=== PATIENT | female | born 1980 | race Hispanic/Latino ===

== ENCOUNTER 2017-01-14 17:54 | Emergency (ER) | payer SELFPAY ==
--- NOTE | 2017-01-14 18:24 | RAD ---
PORTABLE CHEST ONE VIEW: 01/14/17 at 6:06 p.m. HISTORY: Left arm pain, numbness, chest pain. FINDINGS: The heart size is normal. The lungs are expanded without focal areas of consolidation, pneumothorax or pleural effusions. IMPRESSION: No radiographic evidence of acute cardiopulmonary process. POS: [facility]
[2017-01-14 18:26] LABS: #Basophils 0.1 thou/uL (0.0-0.2); #Eosinphils 0.2 thou/uL (0.0-0.7); #Lymphocytes 3.4 thou/uL (1.20-3.40); #Monocytes 0.9 thou/uL (0.11-0.59); #Neutrophils 11.5 thou/uL (1.40-6.50); %Basophils 0.5 % (0.0-1.0); %Eosinophils 1.5 % (0.0-10.0); %Monocytes 5.3 % (0.0-10.0); Hematocrit 46.7 % (36.0-47.0); Mean Platelet Volume 7.5 fL (7.4-10.4); Red Blood Cell (RBC) Count 5.22 mill/uL (4.20-5.40); White Blood Cell (WBC) Count 16.1 thou/uL (4.8-10.8)
[2017-01-14 18:53] LABS: ALT (SGPT) 34 U/L (8-55); AST (SGOT) 21 U/L (5-34); Alkaline Phosphatase 118 U/L (40-150); Anion Gap 13 mmol/L (10-20); BUN (Urea Nitrogen) 15 mg/dL (7.0-18.7); Bilirubin, Total 0.3 mg/dL (0.2-1.2); CK (CPK) 77 U/L (29-168); Calc. Creatinine Clearance 0 mL/min (70-130); Calcium 9.7 mg/dL (7.8-10.44); Carbon Dioxide 24 mmol/L (22-29); Chloride 104 mmol/L (98-107); Estimated GFR-MDRD 78; Globulin 3.6 g/dL (2.4-3.5); Protein, Total 7.6 g/dL (6.0-8.3)
[2017-01-14 18:57] LABS: Troponin I Less than 0.010 ng/mL (< 0.028)
[2017-01-14] MEDS ORDERED: methylPREDNISolone Sod Succ/PF 125 MG/2 ML VIAL ONE (19:08)
[2017-01-14] MEDS ORDERED: Water For Inject, Bacteriostat 30 ML ONE (19:09)
--- NOTE | 2017-01-14 19:49 | RAD ---
CERVICAL SPINE THREE VIEWS: 01/14/17 HISTORY: Left arm pain and numbness, neck pain. FINDINGS/IMPRESSION: There is loss of the cervical lordosis with straightening of the cervical spine. Degenerative change s are present. No fracture or subluxation is identified. POS: [facility]
== END 2017-01-14 19:56 | disposition home or self-care (01) ==
LOC: ERS 17:54
DX: M54.12 Radiculopathy, cervical region (principal); F17.210 Nicotine dependence, cigarettes, uncomplicated
CPT/HCPCS: 36415; 71010; 72040; 80053; 82550; 82553; 83880; 84484; 85025; 93005; 96372; J2930

== ENCOUNTER 2018-02-12 19:54 | Emergency (ER) | payer SELFPAY ==
[~2018-02-12 19:54] MED LIST: ISOVUE-370 76%-LOCM 1 ML ONE
[2018-02-12] MEDS ORDERED: Metoclopramide HCl 10 MG/2 ML VIAL ONE (21:18)
[2018-02-12] MEDS ORDERED: Dicyclomine 20 MG TAB ONE (21:18)
[2018-02-12 21:54] LABS: #Eosinphils 0.2 thou/uL (0.0-0.7); #Lymphocytes 3.4 thou/uL (1.20-3.40); #Monocytes 0.7 thou/uL (0.11-0.59); #Neutrophils 8.5 thou/uL (1.40-6.50); %Basophils 0.2 % (0.0-1.0); %Eosinophils 1.6 % (0.0-10.0); %Lymphocytes 26.5 % (21.0-51.0); %Monocytes 5.5 % (0.0-10.0); %Neutrophils 66.2 % (42.0-75.0); Hemoglobin 14.2 g/dL (12.0-16.0); Mean Corpuscular Hemoglobin 29.3 pg (27.0-31.0); Platelet Count 228 thou/uL (130-400); RBC Distribution Width 11.9 % (11.5-14.5); Red Blood Cell (RBC) Count 4.86 mill/uL (4.20-5.40); White Blood Cell (WBC) Count 12.8 thou/uL (4.8-10.8)
[2018-02-12 21:58] LABS: BHCG - Serum Negative (NEGATIVE); Pregs Control Background? CLEAR/WHITE (CLR/WHITE); Pregs Control Bar Appear? YES (CONTROL BAR)
[2018-02-12 22:06] LABS: ALT (SGPT) 40 U/L (8-55); AST (SGOT) 21 U/L (5-34); Albumin 4.1 g/dL (3.5-5.0); Alkaline Phosphatase 118 U/L (40-150); Anion Gap 13 mmol/L (10-20); BUN (Urea Nitrogen) 11 mg/dL (7.0-18.7); Bilirubin, Total 0.3 mg/dL (0.2-1.2); Calc. Creatinine Clearance 0 mL/min (70-130); Calcium 9.5 mg/dL (7.8-10.44); Carbon Dioxide 23 mmol/L (22-29); Chloride 107 mmol/L (98-107); Estimated GFR-MDRD 84; Globulin 3.1 g/dL (2.4-3.5); Glucose 101 mg/dL (70-105); Potassium 3.8 mmol/L (3.5-5.1); Protein, Total 7.2 g/dL (6.0-8.3); Sodium 139 mmol/L (136-145)
[2018-02-12 22:39] LABS: Bilirubin Negative (Negative); Blood, Urine Negative (Negative); Clarity CLEAR (Clear); Glucose, Urine (Dipstick) Negative (Negative); Leukocyte Negative (Negative); Nitrite Negative (Negative); Protein, Urine (Dipstick) Negative (Neg-Trace); Specific Gravity, Urine 1.007 (1.002-1.036); Urobilinogen 0.2 mg/dL (0.2-1.0); pH, Urine 6.5 (5.0-9.0)
--- NOTE | 2018-02-13 08:54 | CT ---
CT ABDOMEN AND PELVIS WITH CONTRAST: Date: 02/12/18 HISTORY: Central abdominal pain. COMPARISON: CT abdomen and pelvis from 2009. FINDINGS: There is a small pleural 3.0 mm nodule in the right middle lobe. No pericardial effusion. Diffuse hep atic steatosis. Gallbladder is unremarkable. No dilated loops of large or small bowel. No free intraperitoneal gas or fluid. The appendix is visualized and is normal. Right adnexal hypodensity is present, suggesting a cyst. No hydronephrosis. No splenic, pancreatic, or adrenal abnormality. No acute osseous abnormality. IMPRESSION: No acute intra-abdominal abnormality. POS: [facility]
== END 2018-02-12 23:46 | disposition home or self-care (01) ==
LOC: ERS 19:54
DX: R10.13 Epigastric pain (principal); F17.210 Nicotine dependence, cigarettes, uncomplicated
CPT/HCPCS: 74177; 80053; 81003; 84703; 85025; 87086; 96365; J2765

== ENCOUNTER 2018-11-10 16:34 | Emergency (ER) | payer SELFPAY ==
--- NOTE | 2018-11-10 17:21 | RAD ---
PA AND LATERAL CHEST: HISTORY: Cough. Pleuritic chest pain. COMPARISON: 05/25/2012 FINDINGS: Heart size and mediastinum are within normal limits. Lungs are clear of infiltrates. No significant bony findings. IMPRESSION: No active intrathoracic disease. POS: [facility]
== END 2018-11-10 20:56 | disposition home or self-care (01) ==
LOC: ERS 16:34
DX: J20.9 Acute bronchitis, unspecified (principal); F17.210 Nicotine dependence, cigarettes, uncomplicated
CPT/HCPCS: 71046; 93005

== ENCOUNTER 2022-02-12 15:18 | Emergency (ER) | payer OTHER, SELFPAY | END 2022-02-12 15:54 | disposition home or self-care (01) | LOC: ERS 15:18 | DX: B34.9 Viral infection, unspecified (principal); R11.10 Vomiting, unspecified; F17.210 Nicotine dependence, cigarettes, uncomplicated | CPT/HCPCS: 99283 ==

== ENCOUNTER 2023-05-29 12:51 | Emergency (ER) | payer SELFPAY ==
[2023-05-29 13:55] LABS: Bilirubin Negative (Negative); Blood, Urine 3+ (Negative); CAUTI Indications for Culture Dysuria,urgency,freq; Clarity Turbid (Clear); Glucose, Urine (Dipstick) Normal (Negative); Ketone, Urine Negative (Negative); Leukocyte 500 Leu/uL (Negative); Mucous/LPF Rare LPF (<2+); Nitrite Negative (Negative); Protein, Urine (Dipstick) 30 mg/dL (Neg-Trace); RBC/HPF Greater than 50 HPF (0-3); Specific Gravity, Urine 1.012 (1.002-1.036); Urobilinogen Normal mg/dL (Less than 2); WBC/HPF Greater than 50 HPF (0-3)
[2023-05-29 13:57] LABS: Bacteria/HPF 1+ HPF (None Seen)
[2023-05-29 13:58] LABS: Urine Culture Reflex Yes Yes
[2023-05-29] MEDS ORDERED: Cephalexin 250 MG CAP ONE (14:42)
== END 2023-05-29 14:45 | disposition home or self-care (01) ==
LOC: ERS 12:51
DX: N39.0 Urinary tract infection, site not specified (principal); E11.9 Type 2 diabetes mellitus without complications; F17.210 Nicotine dependence, cigarettes, uncomplicated
CPT/HCPCS: 81001; 87086; 99284

== ENCOUNTER 2025-02-14 18:41 | Emergency (ER) | payer SELFPAY ==
[2025-02-14] MEDS ORDERED: Ibuprofen 800 MG TAB ONE (22:30)
[2025-02-14] MEDS ORDERED: Ibuprofen 200 MG TAB ONE ×2 (22:36→22:37)
== END 2025-02-14 22:59 | disposition home or self-care (01) ==
LOC: ERS 18:41
DX: N75.1 Abscess of Bartholin's gland (principal); E11.9 Type 2 diabetes mellitus without complications; F17.210 Nicotine dependence, cigarettes, uncomplicated; Z55.6 Problems related to health literacy
CPT/HCPCS: 99282

== ENCOUNTER 2025-02-17 01:36 | Emergency (ER) | payer SELFPAY ==
[2025-02-17] MEDS ORDERED: Lidocaine 1% w/Epinephrine 1:100K 20 ML VIAL ONE (02:56)
== END 2025-02-17 04:10 | disposition home or self-care (01) ==
LOC: ERS 01:36
DX: N76.4 Abscess of vulva (principal); E11.9 Type 2 diabetes mellitus without complications; F17.210 Nicotine dependence, cigarettes, uncomplicated
CPT/HCPCS: 56405; 96374; 96375; J2270